=== PATIENT | female | born 1980 | race Caucasian/White ===

== ENCOUNTER → 2019-10-14 | Outpatient (CLI) | payer OTHER ==
--- NOTE | 2019-10-14 13:43 | RADIOLOGY REPORT (SQ) ---
EXAM DESCRIPTION: CT ABD/PELVIS WITH IV ORAL IMAGES COMPLETED DATE/TIME: 10/14/2019 1:09 pm REASON FOR STUDY: R10.11 RIGHT UPPER QUADRANT PAIN, R10.12 LEFT UPPER QUADRANT PAIN, R10.33 P R10.11 RIGHT UPPER QUADRANT PAIN R10.12 LEFT UPPER QUADRANT PAIN R10.33 PERIUMBILICAL PAIN COMPARISON: None. TECHNIQUE: CT scan of the abdomen and pelvis performed using helical scanning technique with dynamic intravenous contrast injection. No oral contrast. Images reviewed with lung, soft tissue, and bone windows. Reconstructed coronal and sagittal MPR images reviewed. Delayed images for evaluation of the urinary system also acquired. All images stored on PACS. All CT scanners at this facility use dose modulation, iterative reconstruction, and/or weight based d osing when appropriate to reduce radiation dose to as low as reasonably achievable (ALARA). [facility]: Dose Right [facility]: CareDose [facility]: Dose Right [facility]: Teradose 4D [facility]: [place] CONTRAST TYPE AND DOSE: Contrast/concentration: Isovue 350.00 mg/ml; Total Contrast Delivered: 86.0 ml; Total Saline Delivered: 69.0 ml RENAL FUNCTION: GFR > 60. RADIATION DOSE: CT Rad equipment meets quality standard of care and radiation dose reduction techniq ues were employed. CTDIvol: 7.0 - 7.0 mGy. DLP: 775 mGy-cm. LIMITATIONS: None. FINDINGS: LOWER CHEST: No acute findings. LIVER: The morphology of the liver is noncirrhotic. The relative hypoattenuation of hepatic chronic compared to the splenic parenchyma on the portal venous phase is suggestive of hepatic steatosis. Th e portal and hepatic veins are patent. There is no hepatic mass. SPLEEN: No splenomegaly or splenic mass. PANCREAS: No abnormality of the pancreas. GALLBLADDER: Cholelithiasis and a trace amount of pericholecystic fluid. ADRENAL GLANDS: No mass or asymmetry. RIGHT KIDNEY AND URETER: No solid masses. No calcifications. No hydronephrosis or hydroureter. LEFT KIDNEY AND URETER: No solid masses. No calcifications. No hydronephrosis or hydroureter. AORTA AND VESSELS: No aneurysm or dissection of the abdominal aorta. The left gonadal vein is enlarg ed and there are prominent parametrial vessels in the left adnexum. RETROPERITONEUM: No retroperitoneal adenopathy, hemorrhage or mass. BOWEL AND PERITONEAL CAVITY: No bowel obstruction, bowel wall thickening or pericolonic/ perienteric inflammation. No mesenteric adenopathy, free intraperitoneal fluid or mesenteric/ omental inflammati on. APPENDIX: Normal. PELVIS: The 2.5 x 2.4 cm cystic lesion in the right adnexum could represent an ovarian cyst or follic le. The round hypodense lesion with a thin enhancing rim in the right ovary could represent a corpus luteum cyst. There is a trace amount of free fluid in the cul de sac. There is no abnormality of t he uterus or left adnexum that is apparent on a CT. There is no abnormality of the urinary bladder. ABDOMINAL WALL: No mass or asymmetry. BONES: No acute findings. OTHER: No other finding. IMPRESSION: 1. Hepatic steatosis. 2. Cholelithiasis and a trace amount of pericholecystic fluid. If there is clinical concern for an a cute cholecystitis then correlation with an ultrasound is recommended. 3. Enlargement of the left gonadal vein and prominent left-sided parametrial vessels. The findings are nonspecific but are typical in the setting of pelvic congestion syndrome. 4. Other findings as detailed above. TECHNICAL DOCUMENTATION: JOB ID: [id number] Quality ID # [id number]: Final reports with documentation of one or more dose reduction techniques (e.g., Au tomated exposure control, adjustment of the mA and/or kV according to patient size, use of iterative reconstruction technique) 2010 [employer]- All Rights Reserved Reading location - IP/workstation name: [email or web address]
== END ==
LOC: RAD 12:25
PROVIDERS: ATTEND Surgery
DX: K80.10 Calculus of gallbladder with chronic cholecystitis without obstruction (principal)
CPT/HCPCS: 74177